=== PATIENT | female | born 1975 | race Caucasian/White ===

== ENCOUNTER 2017-08-19 13:57 | Observation (INO) | payer OTHER ==
--- NOTE | 2017-08-19 14:35 | EDM.PDOC ---
ED HPI GENERAL MEDICAL PROBLEM - General Chief Complaint: General Stated Complaint: [id number] TOOK TOO MANY BUPROPION Time Seen by Provider: 08/19/17 14:35 Source of Information: Reports: Patient, RN, RN Notes Reviewed, Other (Poison Control) History Limitations: Reports: No Limitations - History of Present Illness INITIAL COMMENTS - FREE TEXT/NARRATIVE: Arrives from home by POV with c/o accidentally taking #5 tablets of Buproprion XR 150mg having mistaken it for ibuprofen 200mg. Pt denies any attempt at self injury or suicide, including denial of suicidal thought, history of suicide attempt, or any current/recent major depressive episodes. Pt states that she has occasional low back pain and take Ibuprofen for pain relief and somehow grabbed the wrong pill bottle. She called Poison Control and was instructed to go immediately to the ER for evaluation and treatment. Poison Control consult from the ER advises screening labs, EKG, telemetry monitoring, seizure precautions, and observation for a minimum of 18 hours prior to discharge. Pt reports feeling jittery, slightly lightheaded, and nauseated. Onset: Today Onset Date: 08/19/17 Onset Time: 13:00 Duration: Constant Location: Reports: Generalized Severity: Moderate Improves with: Reports: None Worsens with: Reports: None Associated Symptoms: Reports: No Other Symptoms Left Lower Back Pain Score (Numeric/FACES): 5 - Related Data Allergies Allergy/AdvReac Type Severity Reaction Status Date / Time hydrocodone bitartrate Allergy Itching Verified 10/04/16 14:01 [From [place]] Sulfa (Sulfonamide Allergy Cannot Verified 10/04/16 14:01 Antibiotics) Remember Home Meds: Home Meds Albuterol [Ventolin HFA] 2 puff INH Q4H PRN 07/06/15 [History] valACYclovir HCl [valACYclovir] 1 tab PO DAILY 07/06/15 [History] Albuterol Sulfate 2.5 mg IH ASDIRECTED PRN 10/04/16 [History] Albuterol/Ipratropium [DuoNeb 3.0-0.5 MG/3 ML] 3 ml NEB Q6HRRT #10 neb 10/08/16 [Rx] Amoxicillin/Clavulanate K [Augmentin 875 MG/125 MG] 1 tab PO Q12HR #16 tablet [Rx] Azithromycin [Zithromax] 250 mg PO DAILY #8 tablet 10/08/16 [Rx] Oseltamivir Phosphate [IJD: Tamiflu] 75 mg PO BID #10 capsule 10/08/16 [Rx] guaiFENesin [Mucinex] 600 mg PO BID #1 tab.er 10/08/16 [Rx] predniSONE 20 mg PO DAILY #6 mg 10/08/16 [Rx] Past Medical History Cardiovascular History: Reports: None Respiratory History: Reports: Asthma Other Respiratory History: pneumonia, infleunza in past Gastrointestinal History: Reports: GERD Genitourinary History: Reports: None Other Genitourinary History: kidney stone 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 History: Reports: Endometriosis, Other (See Below) Other OB/BYN History: genital herpes Musculoskeletal History: Reports: Back Pain, Chronic, Other (See Below) Other Musculoskeletal History: lumbar disc disease Neurological History: Reports: None Psychiatric History: Reports: Anxiety, Depression Other Psychiatric History: patient denies, no medication for these Endocrine/Metabolic History: Reports: None Hematologic History: Reports: None Immunologic History: Reports: None Oncologic (Cancer) History: Reports: None Dermatologic History: Reports: Other (See Below) Other Dermatologic History: herpes virus - Infectious Disease History Infectious Disease History: Reports: Chicken Pox - Past Surgical History Female Surgical History: Reports: Cystectomy, Hysterectomy, Tubal Ligation Musculoskeletal Surgical History: Reports: Carpal Tunnel Social & Family History - Family History Family Medical History: Noncontributory Cardiac: Reports: Hypertension Other Cardiac Family History: Dad and mom Neurological: Reports: Alzheimers Disease, Other (See Below) Other Neurological Family History: in family hx - Tobacco Use Smoking Status *Q: Former Smoker Years of Tobacco use: 20 Packs/Tins Daily: 1 Used Tobacco, but Quit: Yes Month Tobacco Last Used: Oct Second Hand Smoke Exposure: No - Caffeine Use Caffeine Use: Reports: None - Recreational Drug Use Recreational Drug Use: No - Living Situation & Occupation Living situation: Reports: with Family ED ROS GENERAL - Review of Systems Review Of Systems: ROS reveals no pertinent complaints other than HPI. ED EXAM, GENERAL - Physical Exam Exam: See Below Exam Limited By: No Limitations General Appearance: Alert, WD/WN, No Apparent Distress, Anxious Eye Exam: Bilateral Eye: EOMI, Nystagmus (fine lateral gaze), PERRL Ears: Normal External Exam, Hearing Grossly Normal Nose: Normal Inspection Throat/Mouth: Normal Inspection, Normal Lips, Normal Teeth, Normal Gums, Normal Oropharynx, Normal Voice, No Airway Compromise Head: Atraumatic, Normocephalic Neck: Normal Inspection, Supple, Non-Tender, Full Range of Motion Respiratory/Chest: No Respiratory Distress, Lungs Clear, Normal Breath Sounds, No Accessory Muscle Use, Chest Non-Tender Cardiovascular: Normal Peripheral Pulses, Regular Rate, Rhythm, No Edema, No Gallop, No JVD, No Murmur, No Rub, Tachycardia GI/Abdominal: Normal Bowel Sounds, Soft, Non-Tender, No Distention, No Abnormal Bruit (Female) Exam: Deferred Rectal (Female) Exam: Deferred Back Exam: Decreased Range of Motion (lumbar due to pain), Paraspinal Tenderness. No: CVA Tenderness (L), CVA Tenderness (R), Vertebral Tenderness Extremities: Normal Inspection, Normal Range of Motion, Non-Tender, Normal Capillary Refill, No Pedal Edema Neurological: Alert, Oriented, CN II-XII Intact, Normal Cognition, Normal Gait, Normal Reflexes, No Motor/Sensory Deficits Psychiatric: Normal Affect, Normal Mood, Anxious, Other (not suicidal). No: Depressed Mood Skin Exam: Warm, Dry, Intact, Normal Color, No Rash EKG INTERPRETATION EKG Date: 08/19/17 Time: 14:15 Rhythm: Other (Sinus tach) Rate (Beats/Min): 101 [place]: Normal P-Wave: Present QRS: Normal ST-T: Normal QT: Normal Comparison: NA - No Prior EKG EKG Interpretation Comments: No acute ischemic changes. Course - Vital Signs Last Recorded V/S: Last Vital Signs Temp 37.0 C 08/19/17 14:00 Pulse 106 H 08/19/17 14:00 Resp 16 08/19/17 14:00 BP 116/65 08/19/17 14:00 Pulse Ox 100 08/19/17 14:00 - Orders/Labs/Meds Orders: Active Orders 24 hr Category Date Time Status EKG Documentation Completion [RC] URGENT Care 08/19/17 14:26 Active Peripheral IV Care [RC] . DIRECTED Care 08/19/17 14:36 Active Sodium Chloride 0.9% [Saline Flush] Med 08/19/17 14:36 Active 10 ml FLUSH ASDIRECTED PRN Peripheral IV Insertion Adult [OM.PC] Stat Oth 08/19/17 14:35 Ordered Seizure Precautions [OM.PC] Routine Oth 08/19/17 14:37 Ordered Medication Orders Sodium Chloride (Saline Flush) 10 ml FLUSH ASDIRECTED PRN PRN Reason: Keep Vein Open Last Admin: 08/19/17 14:45 Dose: 10 ml Labs: Laboratory Tests 08/19/17 08/19/17 08/19/17 Range/Units 14:40 14:40 14:40 WBC (5.0-10.0) 10^3/uL RBC (4.2-5.4) 10^6/uL Hgb (12.0-16.0) g/dL Hct (37.0-47.0) % MCV (80-100) fL MCH (27.0-34.0) pg MCHC (33.0-35.0) g/dL Plt Count (150-450) 10^3/uL Neut % (Auto) (42.2-75.2) % Lymph % (Auto) (20.5-50.1) % Vance % (Auto) (2-8) % Eos % (Auto) (1.0-3.0) % Baso % (Auto) (0.0-1.0) % Sodium (135-145) mmol/L Potassium (3.6-5.0) mmol/L Chloride (101-111) mmol/L Carbon Dioxide (21.0-31.0) mmol/L Anion Gap BUN (7-18) mg/dL Creatinine (0.6-1.3) mg/dL Est Cr Clr Drug Dosing mL/min Estimated GFR (MDRD) BUN/Creatinine Ratio Glucose (74-105) mg/dL Calcium (8.4-10.2) mg/dl Total Bilirubin (0.2-1.0) mg/dL AST (10-42) IU/L ALT (10-60) IU/L Alkaline Phosphatase (42-121) IU/L Total Protein (6.7-8.2) g/dl Albumin (3.2-5.5) g/dl Globulin Albumin/Globulin Ratio Urine Color Yellow (YELLOW) Urine Appearance Slightly cloudy (CLEAR) Urine pH 6.0 (5.0-9.0) Ur Specific [place] 1.020 (1.005-1.030) Urine Protein Negative (NEGATIVE) Urine Glucose (UA) Negative (NEGATIVE) Urine Ketones Negative (NEGATIVE) Urine Occult Blood Trace-intact H (NEGATIVE) Urine Nitrite Negative (NEGATIVE) Urine Bilirubin Negative (NEGATIVE) Urine Urobilinogen 0.2 (0.2-1.0) mg/dL Ur Leukocyte Esterase Negative (NEGATIVE) Urine RBC 0-5 /HPF Urine WBC 0-5 (0-5/HPF) /HPF Ur Epithelial Cells Many H /HPF Amorphous Sediment Rare (0/HPF) /HPF Urine Bacteria Few (0-FEW/HPF) /HPF Urine Mucus Rare /LPF Urine HCG, Qual Negative Salicylates Urine Opiates Screen Negative (NEGATIVE) Ur Oxycodone Screen Negative (NEGATIVE) Urine Methadone Screen Negative (NEGATIVE) Acetaminophen Ur Barbiturates Screen Negative (NEGATIVE) U Tricyclic Antidepress Positive H (NEGATIVE) Ur Phencyclidine Scrn Negative (NEGATIVE) Ur Amphetamine Screen Negative (NEGATIVE) U Methamphetamines Scrn Negative (NEGATIVE) Urine MDMA Screen Negative (NEGATIVE) U Benzodiazepines Scrn Negative (NEGATIVE) Urine Cocaine Screen Negative (NEGATIVE) U Marijuana (THC) Screen Positive H (NEGATIVE) Ethyl Alcohol mg/dL 08/19/17 08/19/17 Range/Units 14:47 14:47 WBC 8.6 (5.0-10.0) 10^3/uL RBC 4.20 (4.2-5.4) 10^6/uL Hgb 13.4 D (12.0-16.0) g/dL Hct 39.3 (37.0-47.0) % MCV 93.6 (80-100) fL MCH 31.9 (27.0-34.0) pg MCHC 34.1 (33.0-35.0) g/dL Plt Count 250 (150-450) 10^3/uL Neut % (Auto) 63.3 (42.2-75.2) % Lymph % (Auto) 27.6 (20.5-50.1) % Vance % (Auto) 6.6 (2-8) % Eos % (Auto) 2.2 (1.0-3.0) % Baso % (Auto) 0.3 (0.0-1.0) % Sodium 138 (135-145) mmol/L Potassium 3.2 L (3.6-5.0) mmol/L Chloride 103 (101-111) mmol/L Carbon Dioxide 26.0 (21.0-31.0) mmol/L Anion Gap 12.2 BUN 11 (7-18) mg/dL Creatinine 0.8 (0.6-1.3) mg/dL Est Cr Clr Drug Dosing 65.80 mL/min Estimated GFR (MDRD) > 60 BUN/Creatinine Ratio 13.75 Glucose 96 (74-105) mg/dL Calcium 8.9 (8.4-10.2) mg/dl Total Bilirubin 0.7 (0.2-1.0) mg/dL AST 19 (10-42) IU/L ALT 15 (10-60) IU/L Alkaline Phosphatase 58 (42-121) IU/L Total Protein 7.4 (6.7-8.2) g/dl Albumin 3.7 (3.2-5.5) g/dl Globulin 3.7 Albumin/Globulin Ratio 1.00 Urine Color (YELLOW) Urine Appearance (CLEAR) Urine pH (5.0-9.0) Ur Specific [place] (1.005-1.030) Urine Protein (NEGATIVE) Urine Glucose (UA) (NEGATIVE) Urine Ketones (NEGATIVE) Urine Occult Blood (NEGATIVE) Urine Nitrite (NEGATIVE) Urine Bilirubin (NEGATIVE) Urine Urobilinogen (0.2-1.0) mg/dL Ur Leukocyte Esterase (NEGATIVE) Urine RBC /HPF Urine WBC (0-5/HPF) /HPF Ur Epithelial Cells /HPF Amorphous Sediment (0/HPF) /HPF Urine Bacteria (0-FEW/HPF) /HPF Urine Mucus /LPF Urine HCG, Qual Salicylates < 4 Urine Opiates Screen (NEGATIVE) Ur Oxycodone Screen (NEGATIVE) Urine Methadone Screen (NEGATIVE) Acetaminophen < 10 Ur Barbiturates Screen (NEGATIVE) U Tricyclic Antidepress (NEGATIVE) Ur Phencyclidine Scrn (NEGATIVE) Ur Amphetamine Screen (NEGATIVE) U Methamphetamines Scrn (NEGATIVE) Urine MDMA Screen (NEGATIVE) U Benzodiazepines Scrn (NEGATIVE) Urine Cocaine Screen (NEGATIVE) U Marijuana (THC) Screen (NEGATIVE) Ethyl Alcohol < 5 mg/dL Meds: Medications Generic Name Dose Route Start Last Admin Trade Name Freq PRN Reason Stop Dose Admin Sodium Chloride 10 ml 08/19/17 14:36 08/19/17 14:45 Saline Flush FLUSH 10 ml ASDIRECTED PRN Administration Keep Vein Open Discontinued Medications Generic Name Dose Route Start Last Admin Trade Name Liliana PRN Reason Stop Dose Admin Sodium Chloride 1,000 mls @ 999 mls/hr 08/19/17 14:37 08/19/17 14:58 Normal Saline IV 08/19/17 15:37 999 mls/hr .BOLUS ONE Administration Ketorolac Tromethamine 30 mg 08/19/17 15:28 08/19/17 15:43 Toradol IVPUSH 08/19/17 15:29 30 mg ONETIME ONE Administration Ondansetron HCl 4 mg 08/19/17 15:28 08/19/17 15:43 Zofran IV 08/19/17 15:29 4 mg ONETIME ONE Administration Departure - Departure Time of Disposition: 15:44 (admitted to Dr. Hargrove) Disposition: Refer to Observation Condition: Undetermined Clinical Impression: Bupropion overdose Qualifiers: Encounter type: initial encounter Injury intent: accidental or unintentional Qualified Code(s): T43.291A - Poisoning by other antidepressants, accidental ( unintentional), initial encounter - Discharge Information - My Orders Last 24 Hours: My Active Orders 08/19/17 14:26 EKG Documentation Completion [RC] URGENT 08/19/17 14:35 Peripheral IV Insertion Adult [OM.PC] Stat 08/19/17 14:36 Peripheral IV Care [RC] . DIRECTED Sodium Chloride 0.9% [Saline Flush] 10 ml FLUSH ASDIRECTED PRN 08/19/17 14:37 Seizure Precautions [OM.PC] Routine - Assessment/Plan Last 24 Hours: My Active Orders 08/19/17 14:26 EKG Documentation Completion [RC] URGENT 08/19/17 14:35 Peripheral IV Insertion Adult [OM.PC] Stat 08/19/17 14:36 Peripheral IV Care [RC] . DIRECTED Sodium Chloride 0.9% [Saline Flush] 10 ml FLUSH ASDIRECTED PRN 08/19/17 14:37 Seizure Precautions [OM.PC] Routine
[2017-08-19] MEDS ORDERED: Sodium Chloride 0.9% 10 ML Syringe FLUSH PRN (14:36)
[2017-08-19] MEDS ORDERED: Sodium Chloride 0.9% 1,000 ML IV ONE (14:37)
[2017-08-19] MEDS ORDERED: Ondansetron 4 MG/2 ML SDV IV ONE (15:28)
[2017-08-19] MEDS ORDERED: Ketorolac 30 MG/ML SDV IVPUSH ONE (15:28)
[2017-08-19 15:29] LABS: CHLORIDE,CL 103 mmol/L (101-111); SODIUM,NA 138 mmol/L (135-145)
[2017-08-19 15:32] LABS: ACETAMINOPHEN < 10
[2017-08-19] MEDS ORDERED: Acetaminophen 325 MG Tab PO PRN (16:57)
[2017-08-19] MEDS ORDERED: Magnesium Hydroxide 400 MG/5 ML Susp 30 ML Cup PO PRN (16:57)
[2017-08-19] MEDS ORDERED: Ondansetron 4 MG Tab.DIS PO PRN ×2 (17:28→20:21)
[2017-08-19] MEDS ORDERED: Albuterol/Ipratropium 3.0-0.5 MG/3 ML Neb Soln NEB SCH (18:00)
[2017-08-19] MEDS ORDERED: ALBUTEROL MDI INH PRN (18:54)
[2017-08-19] MEDS ORDERED: Aluminum Hydroxide/Magnesium Hydroxide/Simethicone Susp 30 ML Cup PO PRN (20:21)
[2017-08-19] MEDS ORDERED: VALACYCLOVIR HCL 1000 MG PO SCH (21:00)
--- NOTE | 2017-08-19 22:12 | HP ---
REASON FOR ADMISSION: Accidental ingestion of bupropion tablets. HISTORY OF PRESENT ILLNESS: Hayley Daigle is a 42-year-old female who this afternoon took 5 tablets of bupropion XR 150 mg each (total dose 750 mg). She thought she was taking ibuprofen and shook 5 tablets out into her hand and then realized after the fact that she is taking the bupropion. It is unclear why she failed to see the difference in the tablets. She adamantly denies any attempted self-injury or suicide. She denies any plan or thoughts of suicide. No previous episodes of suicide or self-harm. No history of major depression. Poison Control was consulted, and their recommendation was for overnight admission on telemetry with cardiac monitoring and seizure precautions. PAST MEDICAL HISTORY: Genital herpes, lumbar disc disease, stress urinary incontinence, chronic left shoulder pain, bronchial asthma, dyspepsia, depression in the past, renal calculi in the past, anxiety disorder, endometriosis, and GERD. PAST SURGICAL HISTORY: She has had multiple abdominal procedures, tubal block, appendectomy, tonsils and adenoids, hysteroscopy and D and C with laparoscopy for lysis of adhesions. Cystoscopy. Bladder surgery in 2013 to remove lesion and hysterectomy. IMMUNIZATION HISTORY: Tdap on 03/06/2017. SOCIAL HISTORY: She is single. She is a former smoker, stopped smoking in 2013 after smoking 1 pack of cigarettes a day for 20 years. No secondhand exposure. FAMILY HISTORY: There is a family history of cardiac disease in both parents. REVIEW OF SYSTEMS: She denied any loss of consciousness. She did feel slightly lightheaded and jittery, felt nauseous. She has chronic lower back pain. No vision or hearing changes. No ongoing vomiting or diarrhea. No abdominal pain. No recent falls or injuries. No change in bowel or bladder habits. Appetite is stable. A 12-lead EKG shows sinus tachycardia with a ventricular rate of about 100. Normal axis and intervals. No acute changes. LABORATORY DATA: CBC showed a white count of 8.6, platelets of 250,000, hemoglobin and hematocrit of 13.4 and 39. Electrolytes showed potassium of 3.2, otherwise completely normal electrolytes and LFTs. BUN and creatinine were 11 and 0.8 with a GFR of more than 60. Urinalysis was negative. Urine test was negative (status post hysterectomy). Urine toxicology was positive for tricyclic antidepressants and for marijuana. Alcohol was not detected. Salicylates and Tylenol were not detected. TREATMENT IN THE EMERGENCY ROOM: She was placed on telemetry. She was given a bolus of normal saline. Toradol was used for pain. She felt somewhat nauseous, and she was given an IV dose of Zofran. PHYSICAL EXAMINATION: General: She is a pleasant woman sitting in bed in no acute distress. She is alert and oriented. Vital Signs: Blood pressure is 111/75 on the left and 105/63 on the right, pulse 86 and regular, respiratory rate 20, oxygen saturation 99% on room air. She is afebrile. Height 5 feet, weight 175 pounds 6 ounces. HEENT: Unremarkable. ENT was clear. Moist mucous membranes. No JVDs or bruits. No adenopathy. No thyromegaly. Chest: Clear bilateral breath sounds. Heart: Regular rate and rhythm. Abdomen: Soft and benign. Extremities: No edema. Neurologic: There were no gross motor or sensory deficits. IMPRESSION: A 42-year-old female who took an accidental ingestion of 750 mg of bupropion XR. PLAN: She will be admitted overnight and will be observed on telemetry. If she feels well in the morning and there have been no issues with cardiac arrhythmias or seizure disorder, she will be discharged to home. Condition at time of admission stable. CODE STATUS: Full code. [facility] /[id number]
[2017-08-20 07:40] VITALS: BP 96/53
--- NOTE | 2017-08-24 14:47 | EKG ---
08/19/2017 - MIKEL QUINTERO - FINDINGS: This 12-lead EKG shows a sinus tachycardia with a ventricular rate of 101. Normal axis and intervals. No acute ST-segment or T-wave changes. [facility] /[id number]
== END 2017-08-20 11:30 | disposition home or self-care (01) ==
LOC: DL.ED 13:57 → DL.MS 15:15 → UNDOADMOB 15:15 → DL.MS 16:58
PROVIDERS: ADMIT Internal Medicine; ATTEND Internal Medicine
DX: T43.291A Poisoning by other antidepressants, accidental (unintentional), initial encounter (principal); F41.9 Anxiety disorder, unspecified; K21.9 Gastro-esophageal reflux disease without esophagitis; G89.29 Other chronic pain; M25.512 Pain in left shoulder; A60.00 Herpesviral infection of urogenital system, unspecified; J45.909 Unspecified asthma, uncomplicated; Z79.52 Long term (current) use of systemic steroids; Z79.899 Other long term (current) drug therapy; Z88.2 Allergy status to sulfonamides; Z88.5 Allergy status to narcotic agent; Z90.49 Acquired absence of other specified parts of digestive tract; Z90.710 Acquired absence of both cervix and uterus; Z90.89 Acquired absence of other organs; Z98.51 Tubal ligation status; Z98.890 Other specified postprocedural states; Z87.891 Personal history of nicotine dependence; Z87.01 Personal history of pneumonia (recurrent); Y92.9 Unspecified place or not applicable; Z82.0 Family history of epilepsy and other diseases of the nervous system
CPT/HCPCS: 36415; 80053; 80305; 81001; 81025; 85025; 93005; 96361; 96374; 96375; 99285; A9270; G0378; G0480; J1885; J2405; J7030; J7050

== ENCOUNTER 2018-09-19 10:28 | Emergency (ER) | payer BC ==
[2018-09-19 11:31] VITALS: BP 131/86
== END 2018-09-19 12:02 | disposition left against medical advice (07) ==
LOC: DL.ED 10:28
DX: Z53.21 Procedure and treatment not carried out due to patient leaving prior to being seen by health care provider (principal)

== ENCOUNTER 2019-02-04 19:39 | Emergency (ER) | payer SELFPAY ==
[2019-02-04 19:57] VITALS: BP 133/85
[2019-02-04] MEDS ORDERED: Ondansetron 4 MG/2 ML SDV IV ONE (20:00)
[2019-02-04] MEDS ORDERED: Sodium Chloride 0.9% 1,000 ML IV ONE (20:00)
[2019-02-04] MEDS ORDERED: fentaNYL 100 MCG/2 ML SDV IVPUSH ONE (20:00)
--- NOTE | 2019-02-04 20:03 | EDM.PDOC ---
ED HPI GENERAL MEDICAL PROBLEM - General Chief Complaint: Genitourinary Problem Stated Complaint: KIDNEY STONES OR INFECTION? Time Seen by Provider: 02/04/19 20:01 Source of Information: Reports: Patient History Limitations: Reports: No Limitations - History of Present Illness INITIAL COMMENTS - FREE TEXT/NARRATIVE: onset last night on right side but this am on left side. urine bloody. Lower Back Pain Score (Numeric/FACES): 9 - Related Data Allergies Allergy/AdvReac Type Severity Reaction Status Date / Time hydrocodone bitartrate Allergy Intermediate Hives Verified 02/04/19 19:52 [From [place]] Sulfa (Sulfonamide Allergy Mild Nausea and Verified 02/04/19 19:52 Antibiotics) Vomiting Home Meds: Home Meds Albuterol [Ventolin HFA] 2 puff INH Q4H PRN 07/06/15 [History] valACYclovir HCl [valACYclovir] 1,000 mg PO BEDTIME 07/06/15 [History] Albuterol/Ipratropium [DuoNeb 3.0-0.5 MG/3 ML] 3 ml NEB Q6HRRT PRN 09/19/18 [ History] Montelukast Sodium [Singulair] 10 mg PO BEDTIME 09/19/18 [History] Past Medical History HEENT History: Reports: Impaired Vision Cardiovascular History: Reports: None Respiratory History: Reports: Asthma Other Respiratory History: pneumonia, infleunza in past Gastrointestinal History: Reports: GERD Genitourinary History: Reports: None Other Genitourinary History: kidney stone 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: Reports: Endometriosis, , Other (See Below) 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: genital herpes Musculoskeletal History: Reports: Back Pain, Chronic, Other (See Below) Other Musculoskeletal History: lumbar disc disease Neurological History: Reports: None Psychiatric History: Reports: Anxiety, Depression Other Psychiatric History: patient denies, no medication for these Endocrine/Metabolic History: Reports: None Hematologic History: Reports: None Immunologic History: Reports: None Oncologic (Cancer) History: Reports: None Dermatologic History: Reports: Other (See Below) Other Dermatologic History: herpes virus - Infectious Disease History Infectious Disease History: Reports: Chicken Pox - Past Surgical History Female Surgical History: Reports: Cystectomy, Hysterectomy, Oophorectomy, Tubal Ligation Social & Family History - Family History Family Medical History: Noncontributory Cardiac: Reports: Hypertension Other Cardiac Family History: Dad and mom Neurological: Reports: Alzheimers Disease, Other (See Below) Other Neurological Family History: in family hx - Caffeine Use Caffeine Use: Reports: None - Living Situation & Occupation Living situation: Reports: with Family ED ROS GENERAL - Review of Systems Review Of Systems: ROS reveals no pertinent complaints other than HPI. ED EXAM, RENAL/ - Physical Exam Exam: See Below Exam Limited By: No Limitations General Appearance: Alert, WD/WN, Mild Distress, Moderate Distress, Other (pain) . No: Active Emesis Ears: Hearing Grossly Normal Throat/Mouth: Normal Voice, No Airway Compromise Head: Atraumatic Neck: Non-Tender, Full Range of Motion Respiratory/Chest: No Respiratory Distress Cardiovascular: Regular Rate, Rhythm GI/Abdominal: Soft, Non-Tender Back Exam: CVA Tenderness (L), CVA Tenderness (R) Neurological: Alert, Oriented, Normal Cognition, Normal Gait, No Motor/Sensory Deficits Psychiatric: Tearful Skin Exam: Warm, Dry, Normal Color Lymphatic: No Adenopathy Course - Vital Signs Last Recorded V/S: Last Vital Signs Temp 36.7 C 02/04/19 19:53 Pulse Resp 20 02/04/19 19:53 BP 133/85 02/04/19 19:53 Pulse Ox 100 02/04/19 19:53 - Orders/Labs/Meds Orders: Active Orders 24 hr Category Date Time Status CULTURE BLOOD [BC] Stat Lab 02/04/19 20:10 Received CULTURE URINE [RM] Stat Lab 02/04/19 19:50 Received cefTRIAXone [Rocephin] 1,000 mg Med 02/04/19 23:19 Ordered Sodium Chloride 0.9% [Normal Saline] 100 ml IV ONETIME Medication Orders Ceftriaxone Sodium 1,000 mg/ (Sodium Chloride) 100 mls @ 200 mls/hr IV ONETIME ONE Stop: 02/04/19 23:48 Labs: Laboratory Tests 02/04/19 02/04/19 02/04/19 Range/Units 19:50 19:50 20:04 WBC 15.9 H (5.0-10.0) 10^3/uL RBC 4.32 (4.2-5.4) 10^6/uL Hgb 14.4 (12.0-16.0) g/dL Hct 42.4 (37.0-47.0) % MCV 98.1 D (80-100) fL MCH 33.3 (27.0-34.0) pg MCHC 34.0 (33.0-35.0) g/dL Plt Count 269 (150-450) 10^3/uL Neut % (Auto) 87.5 H (42.2-75.2) % Lymph % (Auto) 10.8 L (20.5-50.1) % [place] % (Auto) 0.5 L (2-8) % Eos % (Auto) 1.1 (1.0-3.0) % Baso % (Auto) 0.1 (0.0-1.0) % Sodium (135-145) mmol/L Potassium (3.6-5.0) mmol/L Chloride (101-111) mmol/L Carbon Dioxide (21.0-31.0) mmol/L Anion Gap BUN (7-18) mg/dL Creatinine (0.6-1.3) mg/dL Est Cr Clr Drug Dosing mL/min Estimated GFR (MDRD) BUN/Creatinine Ratio Glucose (74-105) mg/dL Lactic Acid (0.5-2.2) mmol/L Calcium (8.4-10.2) mg/dl Total Bilirubin (0.2-1.0) mg/dL AST (10-42) IU/L ALT (10-60) IU/L Alkaline Phosphatase (42-121) IU/L Total Protein (6.7-8.2) g/dl Albumin (3.2-5.5) g/dl Globulin Albumin/Globulin Ratio Urine Color Yellow (YELLOW) Urine Appearance Slightly cloudy (CLEAR) Urine pH 6.0 (5.0-9.0) Ur Specific [place] 1.015 (1.005-1.030) Urine Protein 30 H (NEGATIVE) Urine Glucose (UA) Negative (NEGATIVE) Urine Ketones Negative (NEGATIVE) Urine Occult Blood Large H (NEGATIVE) Urine Nitrite Negative (NEGATIVE) Urine Bilirubin Negative (NEGATIVE) Urine Urobilinogen 0.2 (0.2-1.0) mg/dL Ur Leukocyte Esterase Moderate H (NEGATIVE) Urine RBC >100 H /HPF Urine WBC >100 H (0-5/HPF) /HPF Ur Epithelial Cells Few (NOT SEEN) /HPF Urine Bacteria Moderate H (0-FEW/HPF) /HPF Urine Mucus Few H (NOT SEEN) /LPF Urine HCG, Qual Negative 02/04/19 02/04/19 Range/Units 20:10 20:10 WBC (5.0-10.0) 10^3/uL RBC (4.2-5.4) 10^6/uL Hgb (12.0-16.0) g/dL Hct (37.0-47.0) % MCV (80-100) fL MCH (27.0-34.0) pg MCHC (33.0-35.0) g/dL Plt Count (150-450) 10^3/uL Neut % (Auto) (42.2-75.2) % Lymph % (Auto) (20.5-50.1) % [place] % (Auto) (2-8) % Eos % (Auto) (1.0-3.0) % Baso % (Auto) (0.0-1.0) % Sodium 139 (135-145) mmol/L Potassium 3.5 L (3.6-5.0) mmol/L Chloride 104 (101-111) mmol/L Carbon Dioxide 25.0 (21.0-31.0) mmol/L Anion Gap 13.5 BUN 14 (7-18) mg/dL Creatinine 0.8 (0.6-1.3) mg/dL Est Cr Clr Drug Dosing 112.98 mL/min Estimated GFR (MDRD) > 60 BUN/Creatinine Ratio 17.50 Glucose 104 (74-105) mg/dL Lactic Acid 1.4 (0.5-2.2) mmol/L Calcium 8.8 (8.4-10.2) mg/dl Total Bilirubin 0.7 (0.2-1.0) mg/dL AST 18 (10-42) IU/L ALT 13 (10-60) IU/L Alkaline Phosphatase 62 (42-121) IU/L Total Protein 7.8 (6.7-8.2) g/dl Albumin 4.1 (3.2-5.5) g/dl Globulin 3.7 Albumin/Globulin Ratio 1.11 Urine Color (YELLOW) Urine Appearance (CLEAR) Urine pH (5.0-9.0) Ur Specific [place] (1.005-1.030) Urine Protein (NEGATIVE) Urine Glucose (UA) (NEGATIVE) Urine Ketones (NEGATIVE) Urine Occult Blood (NEGATIVE) Urine Nitrite (NEGATIVE) Urine Bilirubin (NEGATIVE) Urine Urobilinogen (0.2-1.0) mg/dL Ur Leukocyte Esterase (NEGATIVE) Urine RBC /HPF Urine WBC (0-5/HPF) /HPF Ur Epithelial Cells (NOT SEEN) /HPF Urine Bacteria (0-FEW/HPF) /HPF Urine Mucus (NOT SEEN) /LPF Urine HCG, Qual Meds: Medications Generic Name Dose Route Start Last Admin Trade Name Freq PRN Reason Stop Dose Admin Ceftriaxone Sodium 1,000 mg/ 100 mls @ 200 mls/hr 02/04/19 23:19 Sodium Chloride IV 02/04/19 23:48 ONETIME ONE Discontinued Medications Generic Name Dose Route Start Last Admin Trade Name Freq PRN Reason Stop Dose Admin Fentanyl 100 mcg 02/04/19 20:00 02/04/19 20:11 Sublimaze IVPUSH 02/04/19 20:01 100 mcg ONETIME ONE Administration Hydromorphone HCl 0.5 mg 02/04/19 20:55 02/04/19 21:01 Dilaudid IVPUSH 02/04/19 20:56 0.5 mg ONETIME ONE Administration Hydromorphone HCl 1 mg 02/04/19 22:34 02/04/19 22:40 Dilaudid IVPUSH 02/04/19 22:35 1 mg ONETIME ONE Administration Sodium Chloride 1,000 mls @ 999 mls/hr 02/04/19 20:00 02/04/19 20:10 Normal Saline IV 02/04/19 21:00 999 mls/hr .BOLUS ONE Administration Ketorolac Tromethamine 30 mg 02/04/19 20:45 02/04/19 20:50 Toradol IVPUSH 02/04/19 20:46 30 mg ONETIME ONE Administration Ondansetron HCl 4 mg 02/04/19 20:00 02/04/19 20:11 Zofran IV 02/04/19 20:01 4 mg ONETIME ONE Administration Tamsulosin HCl 0.4 mg 02/04/19 23:19 Flomax PO 02/04/19 23:20 ONETIME ONE - Re-Assessments/Exams Free Text/Narrative Re-Assessment/Exam: 02/04/19 23:[address] Alaniz who kindly accepted pt. Departure - Departure Time of Disposition: 23:28 Disposition: DC/Tfer to [facility] 02 Condition: Fair Clinical Impression: Kidney stone - Discharge Information Forms: Interfacility Transfer [facility] - My Orders Last 24 Hours: My Active Orders 02/04/19 19:50 CULTURE URINE [RM] Stat 02/04/19 20:10 CULTURE BLOOD [BC] Stat 02/04/19 23:19 cefTRIAXone [Rocephin] 1,000 mg Sodium Chloride 0.9% [Normal Saline] 100 ml IV ONETIME - Assessment/Plan Last 24 Hours: My Active Orders 02/04/19 19:50 CULTURE URINE [RM] Stat 02/04/19 20:10 CULTURE BLOOD [BC] Stat 02/04/19 23:19 cefTRIAXone [Rocephin] 1,000 mg Sodium Chloride 0.9% [Normal Saline] 100 ml IV ONETIME
[2019-02-04 20:38] LABS: ANION GAP 13.5; CHLORIDE,CL 104 mmol/L (101-111); SODIUM,NA 139 mmol/L (135-145)
[2019-02-04] MEDS ORDERED: Ketorolac 30 MG/ML SDV IVPUSH ONE (20:45)
[2019-02-04] MEDS ORDERED: HYDROmorphone 1 MG/ML Syringe IVPUSH ONE ×3 (20:55→23:29)
[2019-02-04] MEDS ORDERED: Tamsulosin 0.4 MG Cap.ER PO ONE (23:19)
[2019-02-04] MEDS ORDERED: cefTRIAXone 500 MG Vial ONE (23:55)
== END 2019-02-05 00:30 ==
LOC: DL.ED 19:39
DX: N13.2 Hydronephrosis with renal and ureteral calculous obstruction (principal); Z88.2 Allergy status to sulfonamides; Z88.8 Allergy status to other drugs, medicaments and biological substances; J45.909 Unspecified asthma, uncomplicated; Z79.899 Other long term (current) drug therapy; Z98.51 Tubal ligation status; Z90.710 Acquired absence of both cervix and uterus
CPT/HCPCS: 36415; 74176; 80053; 81001; 81025; 83605; 85025; 87040; 87086; 87088; 87186; 96365; 96367; 96375; 96376; 99284; A9270; J0696; J1170; J1885; J2405; J3010; J7030; J7050

== ENCOUNTER 2019-08-31 07:53 | Emergency (ER) | payer BC, OTHER ==
[2019-08-31 08:09] VITALS: BP 116/70; PULSE 101
[2019-08-31 08:47] LABS: ANION GAP 13.4; CHLORIDE,CL 105 mmol/L (101-111); SODIUM,NA 137 mmol/L (135-145)
--- NOTE | 2019-08-31 08:54 | EDM.PDOC ---
ED HPI GENERAL MEDICAL PROBLEM - General Chief Complaint: Respiratory Problem Stated Complaint: SOB Time Seen by Provider: 08/31/19 08:35 Source of Information: Reports: Patient History Limitations: Reports: No Limitations - History of Present Illness INITIAL COMMENTS - FREE TEXT/NARRATIVE: This 44 yo female patient reports to the ED with increased shortness of breath. The patient reports her symptoms started 2 days ago and has been getting worse. The patient reports she has been taking her medications as prescribed, but continues to have symptoms. The patient reports a history of Asthma with similar episodes in the past. 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 Treatments throat/chest wall Pain Score (Numeric/FACES): 4 - Related Data Allergies Allergy/AdvReac Type Severity Reaction Status Date / Time hydrocodone bitartrate Allergy Intermediate Hives Verified 08/31/19 08:12 [From [facility]] Sulfa (Sulfonamide Allergy Mild Nausea and Verified 08/31/19 08:12 Antibiotics) Vomiting Home Meds: Home Meds Albuterol [Ventolin HFA] 2 puff INH Q4H PRN 07/06/15 [History] valACYclovir HCl [valACYclovir] 1,000 mg PO BEDTIME 07/06/15 [History] Albuterol/Ipratropium [DuoNeb 3.0-0.5 MG/3 ML] 3 ml NEB Q6HRRT PRN 09/19/18 [ History] Montelukast Sodium [Singulair] 10 mg PO BEDTIME 09/19/18 [History] Past Medical History HEENT History: Reports: Impaired Vision Cardiovascular History: Reports: None Respiratory History: Reports: Asthma Other Respiratory History: pneumonia, infleunza in past Gastrointestinal History: Reports: GERD Genitourinary History: Reports: None Other Genitourinary History: kidney stone 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 History: Reports: Endometriosis, , Other (See Below) Other 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 History: genital herpes Musculoskeletal History: Reports: Back Pain, Chronic, Other (See Below) Other Musculoskeletal History: lumbar disc disease Neurological History: Reports: None Psychiatric History: Reports: Anxiety, Depression Other Psychiatric History: patient denies, no medication for these Endocrine/Metabolic History: Reports: None Hematologic History: Reports: None Immunologic History: Reports: None Oncologic (Cancer) History: Reports: None Dermatologic History: Reports: Other (See Below) Other Dermatologic History: herpes virus - Infectious Disease History Infectious Disease History: Reports: Chicken Pox - Past Surgical History Head Surgeries/Procedures: Reports: None Female Surgical History: Reports: Cystectomy, Hysterectomy, Oophorectomy, Tubal Ligation Social & Family History - Family History Family Medical History: Noncontributory Cardiac: Reports: Hypertension Other Cardiac Family History: Dad and mom Neurological: Reports: Alzheimers Disease, Other (See Below) Other Neurological Family History: in family hx - Tobacco Use Smoking Status *Q: Former Smoker Years of Tobacco use: 20 Packs/Tins Daily: 1 Used Tobacco, but Quit: Yes Month/Year Tobacco Last Used: jul, 2015 Second Hand Smoke Exposure: No - Caffeine Use Caffeine Use: Reports: None - Recreational Drug Use Recreational Drug Use: No - Living Situation & Occupation Living situation: Reports: with Family ED ROS GENERAL - Review of Systems Review Of Systems: Comprehensive ROS is negative, except as noted in HPI. ED EXAM, GENERAL - Physical Exam Exam: See Below Exam Limited By: No Limitations General Appearance: Alert, WD/WN, Moderate Distress Eye Exam: Bilateral Eye: EOMI, Normal Inspection, PERRL Ears: Normal External Exam, Normal Canal, Hearing Grossly Normal, Normal TMs Nose: Normal Inspection, Normal Mucosa, No Blood Throat/Mouth: Normal Inspection, Normal Lips, Normal Teeth, Normal Gums, Normal Oropharynx, Normal Voice, No Airway Compromise Head: Atraumatic, Normocephalic Neck: Normal Inspection, Supple, Non-Tender, Full Range of Motion Respiratory/Chest: No Respiratory Distress, No Accessory Muscle Use, Chest Non- Tender, Wheezing Cardiovascular: Normal Peripheral Pulses, Regular Rate, Rhythm, No Edema, No Gallop, No JVD, No Murmur, No Rub GI/Abdominal: Normal Bowel Sounds, Soft, Non-Tender, No Organomegaly, No Distention, No Abnormal Bruit, No Mass Rectal (Female) Exam: Deferred Back Exam: Normal Inspection, Full Range of Motion, NT Extremities: Normal Inspection, Normal Range of Motion, Non-Tender, Normal Capillary Refill, No Pedal Edema Neurological: Alert, Oriented, CN II-XII Intact, Normal Cognition, Normal Gait, Normal Reflexes, No Motor/Sensory Deficits Psychiatric: Normal Affect, Normal Mood Skin Exam: Warm, Dry, Intact, Normal Color, No Rash Lymphatic: No Adenopathy Course - Vital Signs Last Recorded V/S: Last Vital Signs Temp 36.8 C 08/31/19 08:08 Pulse 101 H 08/31/19 08:08 Resp 20 08/31/19 08:08 BP 116/70 08/31/19 08:08 Pulse Ox 97 08/31/19 08:08 - Orders/Labs/Meds Orders: Active Orders 24 hr Category Date Time Status CULTURE BLOOD [BC] Stat Lab 08/31/19 08:10 Ordered Labs: Laboratory Tests 08/31/19 08/31/19 08/31/19 Range/Units 08:18 08:18 08:18 WBC 10.2 H (5.0-10.0) 10^3/uL RBC 4.38 (4.2-5.4) 10^6/uL Hgb 14.4 (12.0-16.0) g/dL Hct 42.0 (37.0-47.0) % MCV 95.9 (80-100) fL MCH 32.9 (27.0-34.0) pg MCHC 34.3 (33.0-35.0) g/dL Plt Count 261 (150-450) 10^3/uL Neut % (Auto) 72.8 (42.2-75.2) % Lymph % (Auto) 18.5 L (20.5-50.1) % [place] % (Auto) 6.5 (2-8) % Eos % (Auto) 1.8 (1.0-3.0) % Baso % (Auto) 0.4 (0.0-1.0) % Sodium 137 (135-145) mmol/L Potassium 4.4 (3.6-5.0) mmol/L Chloride 105 (101-111) mmol/L Carbon Dioxide 23.0 (21.0-31.0) mmol/L Anion Gap 13.4 BUN 18 (7-18) mg/dL Creatinine 0.8 (0.6-1.3) mg/dL Est Cr Clr Drug Dosing 64.46 mL/min Estimated GFR (MDRD) > 60 BUN/Creatinine Ratio 22.50 Glucose 100 (74-105) mg/dL Lactic Acid 1.4 (0.5-2.0) mmol/L Calcium 9.3 (8.4-10.2) mg/dl Total Bilirubin 0.5 (0.2-1.0) mg/dL AST 18 (10-42) IU/L ALT 14 (10-60) IU/L Alkaline Phosphatase 57 (42-121) IU/L Total Protein 7.8 (6.7-8.2) g/dl Albumin 4.0 (3.2-5.5) g/dl Globulin 3.8 Albumin/Globulin Ratio 1.05 Meds: Medications Discontinued Medications Generic Name Dose Route Start Last Admin Trade Name Freq PRN Reason Stop Dose Admin Methylprednisolone Sodium Succinate 125 mg 08/31/19 09:00 08/31/19 09:12 Solu-Medrol IM 08/31/19 09:01 125 mg ONETIME ONE Administration Departure - Departure Time of Disposition: 09:14 Disposition: Home, Self-Care 01 Condition: Fair Clinical Impression: Exacerbation of asthma Qualifiers: Asthma severity: moderate Asthma persistence: persistent Qualified Code(s): J45.41 - Moderate persistent asthma with (acute) exacerbation - Discharge Information *PRESCRIPTION DRUG MONITORING PROGRAM REVIEWED*: Not Applicable *COPY OF PRESCRIPTION DRUG MONITORING REPORT IN PATIENT JOYCE: Not Applicable Forms: ED Department Discharge Care Plan Goals: The patient was advised of the examination and lab results during the visit. The patient was given an injection of SoluMedrol while in the ED. The patient was discharged with a script for Azithromycin (250 mg) #6 to take 2 by mouth on day 1 and 1 by mouth on days 2-5. The patient was advised to continue to take her medications as prescribed. If the patient has any additional symptoms or concerns, the patient should visit her primary care facility or return to the emergency department. Sepsis Event Note - Evaluation Sepsis Screening Result: No Definite Risk - Focused Exam Vital Signs: Vital Signs Temp Pulse Resp BP Pulse Ox 08/31/19 08:08 36.8 C 101 H 20 116/70 97 Date Exam was Performed: 08/31/19 Time Exam was Performed: 09:14 - My Orders Last 24 Hours: My Active Orders 08/31/19 08:10 CULTURE BLOOD [BC] Stat - Assessment/Plan Last 24 Hours: My Active Orders 08/31/19 08:10 CULTURE BLOOD [BC] Stat
[2019-08-31] MEDS ORDERED: methylPREDNISolone Sodium Succinate 125 MG/2 ML SDV IM ONE (09:00)
== END 2019-08-31 09:25 | disposition home or self-care (01) ==
LOC: DL.ED 07:53
DX: J45.41 Moderate persistent asthma with (acute) exacerbation (principal); Z88.2 Allergy status to sulfonamides; Z90.710 Acquired absence of both cervix and uterus; Z98.51 Tubal ligation status; Z88.5 Allergy status to narcotic agent; Z87.891 Personal history of nicotine dependence
CPT/HCPCS: 36415; 71046; 80053; 83605; 85025; 87040; 87804; 96372; 99285; J2930

== ENCOUNTER 2020-07-23 18:05 | Emergency (ER) | payer BC, OTHER ==
[2020-07-23 18:21] VITALS: PULSE 117
--- NOTE | 2020-07-23 19:28 | EDM.PDOC ---
ED HPI GENERAL MEDICAL PROBLEM - General Chief Complaint: General Stated Complaint: 97.4* TEMP, ALL COVID SYMPTOMS Time Seen by Provider: 07/23/20 19:20 Source of Information: Reports: Patient History Limitations: Reports: No Limitations - History of Present Illness INITIAL COMMENTS - FREE TEXT/NARRATIVE: This 45 yo female patient reports to the ED with a 4-5 day history of increased shortness of breath, fatigue and headaches. The patient does have a history of asthma, but after using her inhaler the patient reports a "couple of seconds" of relief. The patient reports she has family members that have bronchitis and a sinus infection. 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 - Related Data Allergies Allergy/AdvReac Type Severity Reaction Status Date / Time hydrocodone bitartrate Allergy Intermediate Hives Verified 08/31/19 08:12 [From [employer]] Sulfa (Sulfonamide Allergy Mild Nausea and Verified 08/31/19 08:12 Antibiotics) Vomiting Home Meds: Home Meds Albuterol [Ventolin HFA] 2 puff INH Q4H PRN 07/06/15 [History] valACYclovir HCl [valACYclovir] 1,000 mg PO BEDTIME 07/06/15 [History] Albuterol/Ipratropium [DuoNeb 3.0-0.5 MG/3 ML] 3 ml NEB Q6HRRT PRN 09/19/18 [History] Montelukast Sodium [Singulair] 10 mg PO BEDTIME 09/19/18 [History] Past Medical History HEENT History: Reports: Impaired Vision Cardiovascular History: Reports: None Respiratory History: Reports: Asthma Other Respiratory History: pneumonia, infleunza in past Gastrointestinal History: Reports: GERD Genitourinary History: Reports: None Other Genitourinary History: kidney stone GAME DEVELOPER History: Reports: Endometriosis, , Other (See Below) Other GAME DEVELOPER History: genital herpes Musculoskeletal History: Reports: Back Pain, Chronic, Other (See Below) Other Musculoskeletal History: lumbar disc disease Neurological History: Reports: None Psychiatric History: Reports: Anxiety, Depression Other Psychiatric History: patient denies, no medication for these Endocrine/Metabolic History: Reports: None Hematologic History: Reports: None Immunologic History: Reports: None Oncologic (Cancer) History: Reports: None Dermatologic History: Reports: Other (See Below) Other Dermatologic History: herpes virus - Infectious Disease History Infectious Disease History: Reports: Chicken Pox - Past Surgical History Head Surgeries/Procedures: Reports: None Female Surgical History: Reports: Cystectomy, Hysterectomy, Oophorectomy, Tubal Ligation Social & Family History - Family History Family Medical History: No Pertinent Family History Cardiac: Reports: Hypertension Other Cardiac Family History: Dad and mom Neurological: Reports: Alzheimers Disease, Other (See Below) Other Neurological Family History: in family hx - Caffeine Use Caffeine Use: Reports: None - Living Situation & Occupation Living situation: Reports: with Family ED ROS GENERAL - Review of Systems Review Of Systems: Comprehensive ROS is negative, except as noted in HPI. ED EXAM, GENERAL - Physical Exam Exam: See Below Exam Limited By: No Limitations General Appearance: Alert, WD/WN, Moderate Distress Eye Exam: Bilateral Eye: EOMI, Normal Inspection, PERRL Ears: Normal External Exam, Normal Canal, Hearing Grossly Normal, Normal TMs Nose: Normal Inspection, Normal Mucosa, No Blood Throat/Mouth: Normal Inspection, Normal Lips, Normal Teeth, Normal Gums, Normal Oropharynx, Normal Voice, No Airway Compromise Head: Atraumatic, Normocephalic Neck: Normal Inspection, Supple, Non-Tender, Full Range of Motion Respiratory/Chest: No Respiratory Distress, Lungs Clear, Normal Breath Sounds, No Accessory Muscle Use, Chest Non-Tender Cardiovascular: Normal Peripheral Pulses, Regular Rate, Rhythm, No Edema, No Gallop, No JVD, No Murmur, No Rub GI/Abdominal: Normal Bowel Sounds, Soft, Non-Tender, No Organomegaly, No Distention, No Abnormal Bruit, No Mass (Female) Exam: Deferred Rectal (Female) Exam: Deferred Back Exam: Normal Inspection, Full Range of Motion, NT Extremities: Normal Inspection, Normal Range of Motion, Non-Tender, Normal Capillary Refill, No Pedal Edema Neurological: Alert, Oriented, CN II-XII Intact, Normal Cognition, Normal Gait, Normal Reflexes, No Motor/Sensory Deficits Psychiatric: Normal Affect, Normal Mood Skin Exam: Warm, Dry, Intact, Normal Color, No Rash Lymphatic: No Adenopathy Course - Vital Signs Last Recorded V/S: Last Vital Signs Temp 36.9 C 07/23/20 18:20 Pulse 117 H 07/23/20 18:20 Resp 18 07/23/20 18:20 BP Pulse Ox 100 07/23/20 18:20 - Orders/Labs/Meds Orders: Active Orders 24 hr Category Date Time Status Isolation [COMM] Routine Oth 07/23/20 18:10 Active Labs: Laboratory Tests 07/23/20 07/23/20 07/23/20 Range/Units 18:12 19:36 19:36 WBC 8.5 (5.0-10.0) 10^3/uL RBC 3.97 L (4.2-5.4) 10^6/uL Hgb 13.5 (12.0-16.0) g/dL Hct 38.9 (37.0-47.0) % MCV 98.0 (80-100) fL MCH 34.0 (27.0-34.0) pg MCHC 34.7 (33.0-35.0) g/dL Plt Count 257 (150-450) 10^3/uL Neut % (Auto) 57.2 (42.2-75.2) % Lymph % (Auto) 32.7 (20.5-50.1) % [place] % (Auto) 6.9 (2-8) % Eos % (Auto) 2.7 (1.0-3.0) % Baso % (Auto) 0.5 (0.0-1.0) % D-Dimer, Quantitative 108 (0-400) ng/mL Sodium (136-145) mmol/L Potassium (3.5-5.1) mmol/L Chloride (98-107) mmol/L Carbon Dioxide (21-32) mmol/L Anion Gap (7-13) mEq/L BUN (7-18) mg/dL Creatinine (0.55-1.02) mg/dL Est Cr Clr Drug Dosing mL/min Estimated GFR (MDRD) BUN/Creatinine Ratio (No establ ref range) Glucose (74-99) mg/dL Lactic Acid (0.4-2.0) mmol/L Calcium (8.5-10.1) mg/dL Total Bilirubin (0.2-1.0) mg/dL AST (15-37) U/L ALT (14-59) U/L Alkaline Phosphatase (46-116) U/L Total Protein (6.4-8.2) g/dL Albumin (3.4-5.0) g/dL Globulin Albumin/Globulin Ratio SARS-CoV-2 RNA (MISSY) Negative (NEGATIVE) 07/23/20 07/23/20 Range/Units 19:36 19:36 WBC (5.0-10.0) 10^3/uL RBC (4.2-5.4) 10^6/uL Hgb (12.0-16.0) g/dL Hct (37.0-47.0) % MCV (80-100) fL MCH (27.0-34.0) pg MCHC (33.0-35.0) g/dL Plt Count (150-450) 10^3/uL Neut % (Auto) (42.2-75.2) % Lymph % (Auto) (20.5-50.1) % [place] % (Auto) (2-8) % Eos % (Auto) (1.0-3.0) % Baso % (Auto) (0.0-1.0) % D-Dimer, Quantitative (0-400) ng/mL Sodium 138 (136-145) mmol/L Potassium 3.5 (3.5-5.1) mmol/L Chloride 103 (98-107) mmol/L Carbon Dioxide 28 (21-32) mmol/L Anion Gap 10.5 (7-13) mEq/L BUN 11 (7-18) mg/dL Creatinine 0.83 (0.55-1.02) mg/dL Est Cr Clr Drug Dosing 73.91 mL/min Estimated GFR (MDRD) > 60 BUN/Creatinine Ratio 13.3 (No establ ref range) Glucose 91 (74-99) mg/dL Lactic Acid 0.9 (0.4-2.0) mmol/L Calcium 8.5 (8.5-10.1) mg/dL Total Bilirubin 0.2 (0.2-1.0) mg/dL AST 11 L (15-37) U/L ALT 16 (14-59) U/L Alkaline Phosphatase 66 (46-116) U/L Total Protein 6.9 (6.4-8.2) g/dL Albumin 3.2 L (3.4-5.0) g/dL Globulin 3.7 Albumin/Globulin Ratio 0.86 SARS-CoV-2 RNA (MISSY) (NEGATIVE) Meds: Medications Discontinued Medications Generic Name Dose Route Start Last Admin Trade Name Liliana PRN Reason Stop Dose Admin Azithromycin 500 mg 07/23/20 20:32 Zithromax PO 07/23/20 20:33 ONETIME ONE Departure - Departure Time of Disposition: 20:34 Disposition: Home, Self-Care 01 Condition: Fair Clinical Impression: Bronchitis - Discharge Information *PRESCRIPTION DRUG MONITORING PROGRAM REVIEWED*: Not Applicable *COPY OF PRESCRIPTION DRUG MONITORING REPORT IN PATIENT JOYCE: Not Applicable Instructions: Upper Respiratory Infection, Adult, [id number] Forms: ED Department Discharge Care Plan Goals: The patient was advised of the examination, lab and x-ray results during the visit. The patient was given an oral dose of Azithromycin (500 mg) while in the ED. The patient was discharged with a script for Azithromycin (250 mg) #4 to take 1 by mouth daily (starting 07/24/20) and Diflucan (150 mg) to take 1 by mouth as needed. If the patient has any additional symptoms or concerns, the patient should either follow-up with her primary care facility or return to the emergency department. Sepsis Event Note (ED) - Evaluation Sepsis Screening Result: No Definite Risk - Focused Exam Vital Signs: Vital Signs Temp Pulse Resp Pulse Ox 07/23/20 18:20 36.9 C 117 H 18 100
--- NOTE | 2020-07-23 19:54 | CR ---
PROCEDURE INFORMATION: Exam: XR Chest, 2 Views Exam date and time: 07/23/2020 7:30 PM Age: 45 years old Clinical indication: Other: Short of breath TECHNIQUE: Imaging protocol: XR of the chest Views: 2 views. COMPARISON: No relevant prior studies available. FINDINGS: Lungs: The lungs are symmetric, well expanded and clear. Pleural space: There are no pleural effusions. There is no pneumothorax. Heart/Mediastinum: The heart size is normal as are the mediastinal and hilar contours. The pulmonary vessels are normal. Bones/joints: No acute osseous pathology is identified. IMPRESSION: No acute cardiopulmonary disease process identified.
[2020-07-23 20:15] LABS: ANION GAP 10.5 mEq/L (7-13); CHLORIDE,CL 103 mmol/L (98-107); SODIUM,NA 138 mmol/L (136-145)
[2020-07-23] MEDS ORDERED: Azithromycin 250 MG Tab PO ONE (20:32)
== END 2020-07-23 20:41 | disposition home or self-care (01) ==
LOC: DL.ED 18:05
DX: J40 Bronchitis, not specified as acute or chronic (principal); Z20.828 Contact with and (suspected) exposure to other viral communicable diseases; Z88.5 Allergy status to narcotic agent; Z88.2 Allergy status to sulfonamides; Z90.710 Acquired absence of both cervix and uterus; Z98.51 Tubal ligation status
CPT/HCPCS: 36415; 71046; 80053; 83605; 85025; 85379; 87804; 99283; 99285-25; A9270-GY; U0002

== ENCOUNTER 2021-06-04 11:13 | Emergency (ER) | payer OTHER ==
[2021-06-04] MEDS ORDERED: Dexamethasone 4 MG/ML SDV IVPUSH ONE (11:53)
--- NOTE | 2021-06-04 12:03 | EDM.PDOC ---
ED HPI GENERAL MEDICAL PROBLEM - General Stated Complaint: [id number] ASTHMA OUT OF CONTROL Time Seen by Provider: 06/04/21 11:45 Source of Information: Reports: Patient History Limitations: Reports: No Limitations - History of Present Illness INITIAL COMMENTS - FREE TEXT/NARRATIVE: This 45 yo female patient reports to the ED due to increased shortness of breath. The patient reports her shortness of breath started this morning. The patient does have a history of asthma, but ran out of her nebulizer solution about 3 months ago. The patient did use her rescue inhaler today with little to no changes to her condition. The patient reports she has not attempted to be seen in the clinic for her current symptoms. The patient reports she has not gotten vaccinated for COVID and will not get the vaccine. The patient also reports dysuria and a "burnt match" smell to her urine. Onset: Today, Sudden Duration: Constant Location: Reports: Chest Quality: Reports: Other Severity: Moderate Improves with: Reports: None Worsens with: Reports: None Context: Reports: Other Associated Symptoms: Reports: Shortness of Breath - Related Data Allergies Allergy/AdvReac Type Severity Reaction Status Date / Time hydrocodone bitartrate Allergy Intermediate Hives Verified 06/04/21 12:22 [From [place]] Sulfa (Sulfonamide Allergy Mild Nausea and Verified 06/04/21 12:22 Antibiotics) Vomiting Home Meds: Home Meds Albuterol [Ventolin HFA] 2 puff INH Q4H PRN 07/06/15 [History] valACYclovir HCl [valACYclovir] 1,000 mg PO BEDTIME 07/06/15 [History] Albuterol/Ipratropium [DuoNeb 3.0-0.5 MG/3 ML] 3 ml NEB Q6HRRT PRN 09/19/18 [History] Montelukast Sodium [Singulair] 10 mg PO BEDTIME 09/19/18 [History] Fluticasone/Salmeterol [Advair 100-50] 1 puff INH BID 06/04/21 [History] Past Medical History HEENT History: Reports: Impaired Vision Cardiovascular History: Reports: None Respiratory History: Reports: Asthma Other Respiratory History: pneumonia, infleunza in past Gastrointestinal History: Reports: GERD Genitourinary History: Reports: None Other Genitourinary History: kidney stone 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 INTERNAL History: Reports: Endometriosis, , Other (See Below) Other MANAGER INTERNAL History: genital herpes Musculoskeletal History: Reports: Back Pain, Chronic, Other (See Below) Other Musculoskeletal History: lumbar disc disease Neurological History: Reports: None Psychiatric History: Reports: Anxiety, Depression Other Psychiatric History: patient denies, no medication for these Endocrine/Metabolic History: Reports: None Hematologic History: Reports: None Immunologic History: Reports: None Oncologic (Cancer) History: Reports: None Dermatologic History: Reports: Other (See Below) Other Dermatologic History: herpes virus - Infectious Disease History Infectious Disease History: Reports: Chicken Pox - Past Surgical History Head Surgeries/Procedures: Reports: None Female Surgical History: Reports: Cystectomy, Hysterectomy, Oophorectomy, Tubal Ligation Social & Family History - Family History Family Medical History: No Pertinent Family History Cardiac: Reports: Hypertension Other Cardiac Family History: Dad and mom Neurological: Reports: Alzheimers Disease, Other (See Below) Other Neurological Family History: in family hx - Caffeine Use Caffeine Use: Reports: Coffee - Living Situation & Occupation Living situation: Reports: with Family ED ROS GENERAL - Review of Systems Review Of Systems: Comprehensive ROS is negative, except as noted in HPI. ED EXAM, GENERAL - Physical Exam Exam: See Below Exam Limited By: No Limitations General Appearance: Alert, WD/WN, Moderate Distress Eye Exam: Bilateral Eye: EOMI, Normal Inspection, PERRL Ears: Normal External Exam, Normal Canal, Hearing Grossly Normal, Normal TMs Throat/Mouth: Normal Inspection, Normal Lips, Normal Teeth, Normal Gums, Normal Oropharynx, Normal Voice, No Airway Compromise Head: Atraumatic, Normocephalic Neck: Normal Inspection, Supple, Non-Tender, Full Range of Motion Respiratory/Chest: Decreased Breath Sounds, Wheezing Cardiovascular: Normal Peripheral Pulses, Regular Rate, Rhythm, No Edema, No Gallop, No JVD, No Murmur, No Rub GI/Abdominal: Normal Bowel Sounds, Soft, Non-Tender, No Organomegaly, No Distention, No Abnormal Bruit, No Mass (Female) Exam: Deferred Rectal (Female) Exam: Deferred Back Exam: Normal Inspection, Full Range of Motion, NT Extremities: Normal Inspection, Normal Range of Motion, Non-Tender, Normal Capillary Refill, No Pedal Edema Neurological: Alert, Oriented, CN II-XII Intact, Normal Cognition, Normal Gait, Normal Reflexes, No Motor/Sensory Deficits Psychiatric: Normal Affect, Normal Mood Skin Exam: Warm, Dry, Intact, Normal Color, No Rash Lymphatic: No Adenopathy Course - Vital Signs Last Recorded V/S: Last Vital Signs Temp 97.9 F 06/04/21 11:50 Pulse 87 06/04/21 13:12 Resp 16 06/04/21 11:50 BP 117/89 06/04/21 11:50 Pulse Ox 98 06/04/21 13:12 - Orders/Labs/Meds Orders: Active Orders 24 hr Category Date Time Status RT Aerosol Therapy [RC] ASDIRECTED Care 06/04/21 13:12 Ordered CULTURE BLOOD [BC] Stat Lab 06/04/21 11:43 Ordered CULTURE URINE [RM] Urgent Lab 06/04/21 12:04 Received Labs: Laboratory Tests 06/04/21 06/04/21 06/04/21 Range/Units 11:43 12:00 12:00 WBC 7.5 (5.0-10.0) 10^3/uL RBC 4.11 L (4.2-5.4) 10^6/uL Hgb 13.3 (12.0-16.0) g/dL Hct 40.3 (37.0-47.0) % MCV 98.1 (80-100) fL MCH 32.4 (27.0-34.0) pg MCHC 33.0 (33.0-35.0) g/dL Plt Count 297 (150-450) 10^3/uL Neut % (Auto) 66.5 (42.2-75.2) % Lymph % (Auto) 24.5 (20.5-50.1) % [place] % (Auto) 7.0 (2-8) % Eos % (Auto) 1.3 (1.0-3.0) % Baso % (Auto) 0.7 (0.0-1.0) % Sodium 141 (136-145) mmol/L Potassium 3.9 (3.5-5.1) mmol/L Chloride 105 (98-107) mmol/L Carbon Dioxide 26 (21-32) mmol/L Anion Gap 13.9 H (7-13) mEq/L BUN 8 (7-18) mg/dL Creatinine 0.75 (0.55-1.02) mg/dL Est Cr Clr Drug Dosing 68.04 mL/min Estimated GFR (MDRD) > 60 BUN/Creatinine Ratio 10.7 (No establ ref range) Glucose 99 (70-99) mg/dL Lactic Acid (0.4-2.0) mmol/L Calcium 8.7 (8.5-10.1) mg/dL Total Bilirubin 0.3 (0.2-1.0) mg/dL AST 9 L (15-37) U/L ALT 14 (14-59) U/L Alkaline Phosphatase 93 (46-116) U/L Total Protein 7.7 (6.4-8.2) g/dL Albumin 3.4 (3.4-5.0) g/dL Globulin 4.3 Albumin/Globulin Ratio 0.8 Urine Color (YELLOW) Urine Appearance (CLEAR) Urine pH (5.0-9.0) Ur Specific [place] (1.005-1.030) Urine Protein (NEGATIVE) Urine Glucose (UA) (NEGATIVE) Urine Ketones (NEGATIVE) Urine Occult Blood (NEGATIVE) Urine Nitrite (NEGATIVE) Urine Bilirubin (NEGATIVE) Urine Urobilinogen (0.2-1.0) mg/dL Ur Leukocyte Esterase (NEGATIVE) Urine RBC (0-5) /HPF Urine WBC (0-5/HPF) /HPF Ur Epithelial Cells (NOT SEEN) /HPF Urine Bacteria (0-FEW/HPF) /HPF Influenza Type A RNA Negative (NEGATIVE) Influenza Type B RNA Negative (NEGATIVE) SARS-CoV-2 RNA (MISSY) Negative (NEGATIVE) 06/04/21 06/04/21 Range/Units 12:00 12:04 WBC (5.0-10.0) 10^3/uL RBC (4.2-5.4) 10^6/uL Hgb (12.0-16.0) g/dL Hct (37.0-47.0) % MCV (80-100) fL MCH (27.0-34.0) pg MCHC (33.0-35.0) g/dL Plt Count (150-450) 10^3/uL Neut % (Auto) (42.2-75.2) % Lymph % (Auto) (20.5-50.1) % [place] % (Auto) (2-8) % Eos % (Auto) (1.0-3.0) % Baso % (Auto) (0.0-1.0) % Sodium (136-145) mmol/L Potassium (3.5-5.1) mmol/L Chloride (98-107) mmol/L Carbon Dioxide (21-32) mmol/L Anion Gap (7-13) mEq/L BUN (7-18) mg/dL Creatinine (0.55-1.02) mg/dL Est Cr Clr Drug Dosing mL/min Estimated GFR (MDRD) BUN/Creatinine Ratio (No establ ref range) Glucose (70-99) mg/dL Lactic Acid 0.9 (0.4-2.0) mmol/L Calcium (8.5-10.1) mg/dL Total Bilirubin (0.2-1.0) mg/dL AST (15-37) U/L ALT (14-59) U/L Alkaline Phosphatase (46-116) U/L Total Protein (6.4-8.2) g/dL Albumin (3.4-5.0) g/dL Globulin Albumin/Globulin Ratio Urine Color Yellow (YELLOW) Urine Appearance Slightly cloudy (CLEAR) Urine pH 7.0 (5.0-9.0) Ur Specific [place] 1.025 (1.005-1.030) Urine Protein Negative (NEGATIVE) Urine Glucose (UA) Negative (NEGATIVE) Urine Ketones Negative (NEGATIVE) Urine Occult Blood Trace-lysed H (NEGATIVE) Urine Nitrite Negative (NEGATIVE) Urine Bilirubin Negative (NEGATIVE) Urine Urobilinogen 0.2 (0.2-1.0) mg/dL Ur Leukocyte Esterase Small H (NEGATIVE) Urine RBC 0-5 (0-5) /HPF Urine WBC 20-30 H (0-5/HPF) /HPF Ur Epithelial Cells Few (NOT SEEN) /HPF Urine Bacteria Many H (0-FEW/HPF) /HPF Influenza Type A RNA (NEGATIVE) Influenza Type B RNA (NEGATIVE) SARS-CoV-2 RNA (MISSY) (NEGATIVE) Meds: Medications Discontinued Medications Generic Name Dose Route Start Last Admin Trade Name Freq PRN Reason Stop Dose Admin Albuterol/Ipratropium 3 ml 06/04/21 13:12 06/04/21 13:18 Albuterol/Ipratropium 3.0-0.5 Mg/3 Ml Neb Soln NEB 06/04/21 13:13 3 ml ONETIME ONE Administration Dexamethasone 4 mg 06/04/21 11:53 06/04/21 12:06 Dexamethasone 4 Mg/Ml Sdv IVPUSH 06/04/21 11:54 4 mg ONETIME ONE Administration Departure - Departure Time of Disposition: 13:32 Disposition: Home, Self-Care 01 Condition: Fair Clinical Impression: Exacerbation of asthma Qualifiers: Asthma severity: moderate Asthma persistence: persistent Qualified Code(s): J45.41 - Moderate persistent asthma with (acute) exacerbation - Discharge Information *PRESCRIPTION DRUG MONITORING PROGRAM REVIEWED*: Not Applicable *COPY OF PRESCRIPTION DRUG MONITORING REPORT IN PATIENT JOYCE: Not Applicable Instructions: Asthma, Adult, [id number] Forms: ED Department Discharge Care Plan Goals: The patient was advised of the examination and lab results during the visit. The patient was given an IV dose of Dexamethasone and a nebulized Duoneb treatment during the visit. The patient was discharged with a script for Duoneb Solution # 1 box to do 1 treatment every 6 hours as needed and Prednisone (20 mg) #10 to take 2 by mouth daily for 5 days. If the patient has any additional symptoms or concerns, the patient should either return to the emergency department or visit her primary care facility. Sepsis Event Note (ED) - Focused Exam Vital Signs: Vital Signs Temp Pulse Resp BP Pulse Ox Pulse Ox 06/04/21 13:12 87 98 06/04/21 11:50 97.9 F 102 H 16 117/89 97 - My Orders Last 24 Hours: My Active Orders 06/04/21 11:43 CULTURE BLOOD [BC] Stat 06/04/21 12:04 CULTURE URINE [RM] Urgent 06/04/21 13:12 RT Aerosol Therapy [RC] ASDIRECTED - Assessment/Plan Last 24 Hours: My Active Orders 06/04/21 11:43 CULTURE BLOOD [BC] Stat 06/04/21 12:04 CULTURE URINE [RM] Urgent 06/04/21 13:12 RT Aerosol Therapy [RC] ASDIRECTED
[2021-06-04 12:23] VITALS: BP 117/89
[2021-06-04 12:27] LABS: ANION GAP 13.9 mEq/L (7-13); CHLORIDE,CL 105 mmol/L (98-107); SODIUM,NA 141 mmol/L (136-145)
[2021-06-04 12:46] LABS: CORONAVIRUS COVID-19 NAA NEGATIVE (NEGATIVE)
[2021-06-04] MEDS ORDERED: Albuterol/Ipratropium 3.0-0.5 MG/3 ML Neb Soln NEB ONE (13:12)
[2021-06-04 13:19] VITALS: PULSE 87
== END 2021-06-04 13:55 | disposition home or self-care (01) ==
LOC: DL.ED 11:13
DX: J45.41 Moderate persistent asthma with (acute) exacerbation (principal); Z88.5 Allergy status to narcotic agent; Z88.2 Allergy status to sulfonamides; Z20.822 Contact with and (suspected) exposure to COVID-19; Z79.899 Other long term (current) drug therapy
CPT/HCPCS: 0240U; 36415; 80053; 81001; 83605; 85025; 87040; 87086; 94640; 96374; 99285; J1100; 87088; 87186; J7620-GY

== ENCOUNTER 2021-06-07 09:42 | Emergency (ER) | payer OTHER ==
[2021-06-07 10:34] VITALS: BP 125/94; PULSE 103
[2021-06-07] MEDS ORDERED: Albuterol/Ipratropium 3.0-0.5 MG/3 ML Neb Soln NEB ONE (10:41)
--- NOTE | 2021-06-07 10:44 | EDM.PDOC ---
ED HPI GENERAL MEDICAL PROBLEM - General Chief Complaint: Respiratory Problem Stated Complaint: ASTHMA / TROUBLE BREATHING Time Seen by Provider: 06/07/21 10:42 Source of Information: Reports: Patient, Old Records, RN, RN Notes Reviewed History Limitations: Reports: No Limitations - History of Present Illness INITIAL COMMENTS - FREE TEXT/NARRATIVE: Hayley is a 45 y/o female with a history of asthma, eight weeks cigarette free, who presents to the ED via personal vehicle with complaints of progressive shortness of breath and cough. The patient was examined at this facility three days ago for similar symptoms and was subsequently diagnosed with asthma exacerbation for which she received albuterol nebulizers and a pulmonary prednisone burst. Additionally, she does attest to chest pain with deep inspiration and cough. The patient denies fever, shaking chills, vision changes, dizziness, hemoptysis, or palpitations. She has not taken any PRN medications for her symptoms, her last nebulizer treatment was last night. The patient reports she is 8-weeks cigarette free; she denies alcohol or recreational drug use. She is not vaccinated for COVID. chest Pain Score (Numeric/FACES): 6 - Related Data Allergies Allergy/AdvReac Type Severity Reaction Status Date / Time hydrocodone bitartrate Allergy Intermediate Hives Verified 06/07/21 10:33 [From [facility]] Sulfa (Sulfonamide Allergy Mild Nausea and Verified 06/07/21 10:33 Antibiotics) Vomiting Home Meds: Home Meds Albuterol [Ventolin HFA] 2 puff INH Q4H PRN 07/06/15 [History] valACYclovir HCl [valACYclovir] 1,000 mg PO BEDTIME 07/06/15 [History] Albuterol/Ipratropium [DuoNeb 3.0-0.5 MG/3 ML] 3 ml NEB Q6HRRT PRN 09/19/18 [History] Montelukast Sodium [Singulair] 10 mg PO BEDTIME 09/19/18 [History] Fluticasone/Salmeterol [Advair 100-50] 1 puff INH BID 06/04/21 [History] Past Medical History HEENT History: Reports: Impaired Vision Cardiovascular History: Reports: None Respiratory History: Reports: Asthma Other Respiratory History: pneumonia, infleunza in past Gastrointestinal History: Reports: GERD Genitourinary History: Reports: None Other Genitourinary History: kidney stone GLOVE MAKER History: Reports: Endometriosis, , Other (See Below) Other GLOVE MAKER History: genital herpes Musculoskeletal History: Reports: Back Pain, Chronic, Other (See Below) Other Musculoskeletal History: lumbar disc disease Neurological History: Reports: None Psychiatric History: Reports: Anxiety, Depression Other Psychiatric History: patient denies, no medication for these Endocrine/Metabolic History: Reports: None Hematologic History: Reports: None Immunologic History: Reports: None Oncologic (Cancer) History: Reports: None Dermatologic History: Reports: Other (See Below) Other Dermatologic History: herpes virus - Infectious Disease History Infectious Disease History: Reports: Chicken Pox - Past Surgical History Head Surgeries/Procedures: Reports: None HEENT Surgical History: Reports: Adenoidectomy, Tonsillectomy Cardiovascular Surgical History: Reports: None Respiratory Surgical History: Reports: None GI Surgical History: Reports: None Other GI Surgeries/Procedures: in grade school Female Surgical History: Reports: Cystectomy, Hysterectomy, Oophorectomy, Tubal Ligation Other Female Surgeries/Procedures: has bladder sling, hysterectomy in 12/30, injections next to bladder 08/01 Musculoskeletal Surgical History: Reports: Carpal Tunnel Dermatological Surgical History: Reports: None Social & Family History - Family History Family Medical History: No Pertinent Family History Cardiac: Reports: Hypertension Other Cardiac Family History: Dad and mom Neurological: Reports: Alzheimers Disease, Other (See Below) Other Neurological Family History: in family hx - Caffeine Use Caffeine Use: Reports: Coffee - Living Situation & Occupation Living situation: Reports: with Family ED ROS GENERAL - Review of Systems Review Of Systems: Comprehensive ROS is negative, except as noted in HPI. ED EXAM, GENERAL - Physical Exam Exam: See Below Exam Limited By: No Limitations General Appearance: Alert, No Apparent Distress Eye Exam: Bilateral Eye: EOMI, Normal Inspection, PERRL (3mm) Ears: Normal External Exam, Normal Canal, Hearing Grossly Normal, Normal TMs Ear Exam: Bilateral Ear: Auricle Normal, Canal Normal, TM normal Nose: Normal Inspection, Normal Mucosa, No Blood Throat/Mouth: Normal Inspection, Normal Oropharynx, Normal Voice, No Airway Compromise Head: Atraumatic, Normocephalic Neck: Normal Inspection, Full Range of Motion. No: Lymphadenopathy (L), Lymphadenopathy (R) Respiratory/Chest: No Respiratory Distress, No Accessory Muscle Use, Rhonchi (Diffuse), Wheezing (Inspiratory and expiratory wheezes ). No: Rales, Stridor, Accessory Muscle Use Cardiovascular: Normal Peripheral Pulses, Regular Rate, Rhythm, No Edema, No Gallop, No JVD, No Murmur, No Rub, Tachycardia Peripheral Pulses: 2+: Radial (L), Radial (R) GI/Abdominal: Normal Bowel Sounds, Soft, Non-Tender, No Distention, No Abnormal Bruit, No Mass, Pelvis Stable. No: Guarding, Rigid, Rebound (Female) Exam: Deferred Rectal (Female) Exam: Deferred Back Exam: Normal Inspection, Full Range of Motion Extremities: Normal Inspection, Normal Range of Motion, Non-Tender, No Pedal Edema, Normal Capillary Refill Neurological: Alert, Oriented, CN II-XII Intact, Normal Cognition, Normal Gait, No Motor/Sensory Deficits Psychiatric: Normal Affect, Normal Mood Skin Exam: Warm, Dry, Intact, Normal Color, No Rash. No: Cyanosis, Jaundice, Mottled, Pallor Course - Vital Signs Last Recorded V/S: Last Vital Signs Temp 98.6 F 06/07/21 10:29 Pulse 103 H 06/07/21 10:29 Resp 20 06/07/21 10:29 BP 125/94 H 06/07/21 10:29 Pulse Ox 96 06/07/21 10:29 - Orders/Labs/Meds Labs: Laboratory Tests 06/07/21 06/07/21 06/07/21 Range/Units 10:40 10:40 10:40 WBC 8.8 (5.0-10.0) 10^3/uL RBC 4.24 (4.2-5.4) 10^6/uL Hgb 13.7 (12.0-16.0) g/dL Hct 42.4 (37.0-47.0) % MCV 100.0 (80-100) fL MCH 32.3 (27.0-34.0) pg MCHC 32.3 L (33.0-35.0) g/dL Plt Count 287 (150-450) 10^3/uL Neut % (Auto) 59.7 (42.2-75.2) % Lymph % (Auto) 29.2 (20.5-50.1) % Wells % (Auto) 10.3 H (2-8) % Eos % (Auto) 0.3 L (1.0-3.0) % Baso % (Auto) 0.5 (0.0-1.0) % Sodium 141 (136-145) mmol/L Potassium 3.6 (3.5-5.1) mmol/L Chloride 103 (98-107) mmol/L Carbon Dioxide 27 (21-32) mmol/L Anion Gap 14.6 H (7-13) mEq/L BUN 18 (7-18) mg/dL Creatinine 0.91 (0.55-1.02) mg/dL Est Cr Clr Drug Dosing 56.08 mL/min Estimated GFR (MDRD) > 60 BUN/Creatinine Ratio 19.8 (No establ ref range) Glucose 80 (70-99) mg/dL Lactic Acid 1.2 (0.4-2.0) mmol/L Calcium 8.9 (8.5-10.1) mg/dL Total Bilirubin 0.2 (0.2-1.0) mg/dL AST 10 L (15-37) U/L ALT 14 (14-59) U/L Alkaline Phosphatase 91 (46-116) U/L C-Reactive Protein < 0.2 (0.0-0.9) mg/dL B-Natriuretic Peptide (0-100) pg/ml Total Protein 8.0 (6.4-8.2) g/dL Albumin 3.5 (3.4-5.0) g/dL Globulin 4.5 Albumin/Globulin Ratio 0.8 SARS-CoV-2 RNA (MISSY) (NEGATIVE) 06/07/21 06/07/21 Range/Units 10:40 11:01 WBC (5.0-10.0) 10^3/uL RBC (4.2-5.4) 10^6/uL Hgb (12.0-16.0) g/dL Hct (37.0-47.0) % MCV (80-100) fL MCH (27.0-34.0) pg MCHC (33.0-35.0) g/dL Plt Count (150-450) 10^3/uL Neut % (Auto) (42.2-75.2) % Lymph % (Auto) (20.5-50.1) % Wells % (Auto) (2-8) % Eos % (Auto) (1.0-3.0) % Baso % (Auto) (0.0-1.0) % Sodium (136-145) mmol/L Potassium (3.5-5.1) mmol/L Chloride (98-107) mmol/L Carbon Dioxide (21-32) mmol/L Anion Gap (7-13) mEq/L BUN (7-18) mg/dL Creatinine (0.55-1.02) mg/dL Est Cr Clr Drug Dosing mL/min Estimated GFR (MDRD) BUN/Creatinine Ratio (No establ ref range) Glucose (70-99) mg/dL Lactic Acid (0.4-2.0) mmol/L Calcium (8.5-10.1) mg/dL Total Bilirubin (0.2-1.0) mg/dL AST (15-37) U/L ALT (14-59) U/L Alkaline Phosphatase (46-116) U/L C-Reactive Protein (0.0-0.9) mg/dL B-Natriuretic Peptide 30 (0-100) pg/ml Total Protein (6.4-8.2) g/dL Albumin (3.4-5.0) g/dL Globulin Albumin/Globulin Ratio SARS-CoV-2 RNA (MISSY) Negative (NEGATIVE) Meds: Medications Discontinued Medications Generic Name Dose Route Start Last Admin Trade Name Liliana PRN Reason Stop Dose Admin Albuterol/Ipratropium 3 ml 06/07/21 10:41 06/07/21 10:48 Albuterol/Ipratropium 3.0-0.5 Mg/3 Ml Neb Soln NEB 06/07/21 10:42 3 ml ONETIME ONE Administration Benzonatate 100 mg 06/07/21 11:40 06/07/21 11:59 Benzonatate 100 Mg Cap PO 06/07/21 11:41 100 mg ONETIME ONE Administration Ceftriaxone Sodium 1 gm/ 50 mls @ 100 mls/hr 06/07/21 11:40 06/07/21 12:26 Sodium Chloride IV 06/07/21 12:09 Infused ONETIME ONE Infusion - Radiology Interpretation Free Text/Narrative:: [facility] Final Radiology Report Call: [phone] assistance Online chat: [email or web address] Name: HAYLEY ANSARI Age: 45Years F Date: 06/07/2021 SSN: -- : [id number] Study: CR CHEST 2V Requesting Physician: Pushpa Rosales Images: 2 Addl Studies: Provided Clinical History: persistent cough, rhonchi diffuse Contrast: Contrast Medium: Contrast Amount: Contrast Method: CONFIDENTIALITY STATEMENT This report is intended only for use by the referring physician, and only in accordance with law. If you received this in error, call [phone]. Page 1 of 1 PROCEDURE INFORMATION: Exam: XR Chest Exam date and time: 06/07/2021 10:57 AM Age: 45 years old Clinical indication: Cough; Additional info: Persistent cough, rhonchi diffuse TECHNIQUE: Imaging protocol: XR of the chest. Views: 2 views. COMPARISON: CR Chest 2V 07/23/2020 7:30 PM FINDINGS: Lungs: The lungs are normally expanded and clear. Pleural spaces: Normal. Heart/Mediastinum: Normal heart and cardio-mediastinal silhouette. Vasculature: Normal pulmonary vessels and width of the vascular pedicle. Bones/joints: Intact and normally aligned. No suspicious lesion. IMPRESSION: No acute disease or suspicious finding. Thank you for allowing us to participate in the care of your patient. Dictated and Authenticated by: Bonifacio Bustamante MD 06/07/2021 11:29 AM Central Time ([place] & [place]) - Re-Assessments/Exams Free Text/Narrative Re-Assessment/Exam: 06/07/21 COVID test sent. CXR obtained while labs pending. Findings of examination, lab work, and imaging reviewed with patient. Will treat UTI from previous visit with Rocephin 1gm IVPB and Keflex 500mg. Supportive cares for for UTI and cough discussed. Patient instructed to follow up with primary care provider regarding todays visit. Red flag signs and symptoms which would warrant immediate reevaluation reviewed. Patient verbalized understanding and agreement with the plan of care. Departure - Departure Time of Disposition: 12:13 Disposition: Home, Self-Care 01 Clinical Impression: Asthma exacerbation Qualifiers: Asthma severity: moderate Asthma persistence: persistent Qualified Code(s): J45.41 - Moderate persistent asthma with (acute) exacerbation Urinary tract infection Qualifiers: Urinary tract infection type: acute cystitis Hematuria presence: with hematuria Qualified Code(s): N30.01 - Acute cystitis with hematuria - Discharge Information *PRESCRIPTION DRUG MONITORING PROGRAM REVIEWED*: Not Applicable *COPY OF PRESCRIPTION DRUG MONITORING REPORT IN PATIENT JOYCE: Not Applicable Instructions: Asthma, Adult, Urinary Tract Infection, Adult Forms: ED Department Discharge Additional Instructions: Rx: Keflex Rx; Tessalon Perles 1.) Take all of your antibiotic until gone, even as symptoms improve improve. 2.) Continue on your previously prescribed steroids and albuterol. 3.) Follow up with your primary care provider in 2-3 days regarding today's visit. Sepsis Event Note (ED) - Evaluation Sepsis Screening Result: No Definite Risk - Focused Exam Vital Signs: Vital Signs Temp Pulse Resp BP Pulse Ox 06/07/21 10:29 98.6 F 103 H 20 125/94 H 96
[2021-06-07 11:07] LABS: ANION GAP 14.6 mEq/L (7-13); CHLORIDE,CL 103 mmol/L (98-107); SODIUM,NA 141 mmol/L (136-145)
--- NOTE | 2021-06-07 11:29 | CR ---
PROCEDURE INFORMATION: Exam: XR Chest Exam date and time: 06/07/2021 10:57 AM Age: 45 years old Clinical indication: Cough; Additional info: Persistent cough, rhonchi diffuse TECHNIQUE: Imaging protocol: XR of the chest. Views: 2 views. COMPARISON: CR Chest 2V 07/23/2020 7:30 PM FINDINGS: Lungs: The lungs are normally expanded and clear. Pleural spaces: Normal. Heart/Mediastinum: Normal heart and cardio-mediastinal silhouette. Vasculature: Normal pulmonary vessels and width of the vascular pedicle. Bones/joints: Intact and normally aligned. No suspicious lesion. IMPRESSION: No acute disease or suspicious finding.
[2021-06-07] MEDS ORDERED: cefTRIAXone 1 GM in Sodium Chloride 0.9% 50 ML IV ONE (11:40)
[2021-06-07] MEDS ORDERED: Benzonatate 100 MG Cap PO ONE (11:40)
== END 2021-06-07 12:36 | disposition home or self-care (01) ==
LOC: DL.ED 09:42
DX: J45.41 Moderate persistent asthma with (acute) exacerbation (principal); N30.01 Acute cystitis with hematuria; Z88.5 Allergy status to narcotic agent; Z88.2 Allergy status to sulfonamides; Z79.899 Other long term (current) drug therapy; Z20.822 Contact with and (suspected) exposure to COVID-19
CPT/HCPCS: 36415; 71046; 80053; 83605; 83880; 85025; 86140; 87635; 94640; 96365; 99285; A9270; J0696; J7620-GY; U0002

== ENCOUNTER 2022-09-24 11:49 | Emergency (ER) | payer MEDICAID, OTHER ==
[2022-09-24] MEDS ORDERED: Ketorolac 30 MG/ML SDV IM ONE (12:56)
[2022-09-24] MEDS ORDERED: Cyclobenzaprine 10 MG Tab PO ONE (12:57)
[2022-09-24] MEDS ORDERED: Lidocaine 5% Oint 35.44 GM Tube TOP ONE (12:57)
[2022-09-24 13:59] VITALS: BP 128/76; PULSE 78
== END 2022-09-24 13:56 | disposition home or self-care (01) ==
LOC: DL.ED 11:49
DX: S30.0XXA Contusion of lower back and pelvis, initial encounter (principal); J45.909 Unspecified asthma, uncomplicated; Z88.5 Allergy status to narcotic agent; Z88.2 Allergy status to sulfonamides; Z72.0 Tobacco use; Z79.899 Other long term (current) drug therapy; Z90.710 Acquired absence of both cervix and uterus; W00.0XXA Fall on same level due to ice and snow, initial encounter
CPT/HCPCS: 72220; 96372; 99283; 99284; A9270-GY; J1885

== ENCOUNTER 2023-09-03 17:48 | Emergency (ER) | payer BC, OTHER ==
[2023-09-03 17:59] VITALS: BP 159/98; PULSE 114
[2023-09-03] MEDS: predniSONE 20 MG Tab PO ONE (18:09)
[2023-09-03] MEDS: Albuterol/Ipratropium 3.0-0.5 MG/3 ML Neb Soln NEB ONE (18:09)
== END 2023-09-03 18:41 | disposition home or self-care (01) ==
LOC: DL.ED 17:48
DX: R06.02 Shortness of breath (principal); Z87.891 Personal history of nicotine dependence; J45.909 Unspecified asthma, uncomplicated; Z88.2 Allergy status to sulfonamides
CPT/HCPCS: 99283; 99284; J7512; J7620-GY

== ENCOUNTER 2023-09-08 08:51 | Emergency (ER) | payer BC, OTHER ==
[2023-09-08 09:47] LABS: BASOPHILS PERCENT AUTO 0.3 % (0.0-1.0); EOSINOPHILS PERCENT AUTO 2.6 % (1.0-3.0); HEMATOCRIT 27.9 % (37.0-47.0); HEMOGLOBIN 9.3 g/dL (12.0-16.0); LYMPHOCYTES PERCENT AUTO 45.3 % (20.5-50.1); MEAN CORPUSCULAR HEMOGLOBIN 32.6 pg (27.0-34.0); MEAN CORPUSCULAR HGB CONC 33.3 g/dL (33.0-35.0); MEAN CORPUSCULAR VOLUME 97.9 fL (80-100); MONOCYTES PERCENT AUTO 5.7 % (2-8); NEUTROPHILS PERCENT AUTO 46.1 % (42.2-75.2); PLATELET COUNT,PLT 214 10^3/uL (150-450); RED BLOOD CELL COUNT 2.85 10^6/uL (4.2-5.4); WHITE BLOOD CELL COUNT,WBC 10.6 10^3/uL (5.0-10.0)
[2023-09-08 09:51] LABS: APPEARANCE,URINE CLEAR (CLEAR); BILIRUBIN,URINE NEGATIVE (NEGATIVE); COLOR,URINE YELLOW (YELLOW); GLUCOSE,URINE NEGATIVE (NEGATIVE); KETONES,URINE NEGATIVE (NEGATIVE); LEUKOCYTE ESTERASE,URINE NEGATIVE (NEGATIVE); NITRITE,URINE NEGATIVE (NEGATIVE); OCCULT BLOOD,URINE TRACE-INTACT (NEGATIVE); PH,URINE 6.5 (5.0-9.0); PROTEIN,URINE NEGATIVE (NEGATIVE); UROBILINOGEN,URINE 0.2 mg/dL (0.2-1.0)
[2023-09-08 10:09] LABS: ALBUMIN 2.9 g/dL (3.4-5.0); ANION GAP 11.8 mEq/L (7-13); BILIRUBIN TOTAL 0.3 mg/dL (0.2-1.0); BUN/CREATININE RATIO 22.8 (No establ ref range); CALCIUM 8.5 mg/dL (8.5-10.1); CREATININE 0.79 mg/dL (0.55-1.02); EST CRCL DRUG DOSING (CG) 62.55 mL/min; POTASSIUM,K 3.8 mmol/L (3.5-5.1); PROTEIN TOTAL,TP 6.2 g/dL (6.4-8.2)
[2023-09-08 10:10] LABS: A/G RATIO 0.88
[2023-09-08 10:15] LABS: EPITHELIAL CELLS,URINE MODERATE /HPF (NOT SEEN); RBC,URINE 0-5 /HPF (0-5)
[2023-09-08 10:16] LABS: WBC,URINE 0-5 /HPF (0-5/HPF)
[2023-09-08 10:22] LABS: BACTERIA,URINE RARE /HPF (0-FEW/HPF)
[2023-09-08 11:09] LABS: CORONAVIRUS COVID-19 NAA NEGATIVE (NEGATIVE); INFLUENZA A NAA NEGATIVE (NEGATIVE); INFLUENZA B NAA NEGATIVE (NEGATIVE)
[2023-09-08] MEDS ORDERED: Ondansetron 4 MG/2 ML SDV IVPUSH ONE (11:45)
[2023-09-08] MEDS ORDERED: Lactated Ringers 1,000 ML IV ONE (11:45)
[2023-09-08] MEDS ORDERED: Ketorolac 30 MG/ML SDV IVPUSH ONE (11:46)
[2023-09-08] MEDS ORDERED: Triamcinolone Acetonide 40 MG/ML 1 ML SDV INJECT ONE (11:52)
[2023-09-08] MEDS ORDERED: Lidocaine 1% 5 ML VIAL INJECT ONE (11:52)
[2023-09-08] MEDS ORDERED: Lidocaine 2% Viscous Solution 15 ML UD PO ONE (12:23)
[2023-09-08] MEDS ORDERED: Aluminum Hydroxide/Magnesium Hydroxide/Simethicone Susp 30 ML Cup PO ONE (12:23)
[2023-09-08] MEDS ORDERED: Iopamidol 755 Mg/ML 100 ML Bottle IVPUSH ONE (13:00)
[2023-09-08] MEDS ORDERED: Omeprazole 20 MG Cap.CR PO ONE (16:03)
[2023-09-08 16:26] VITALS: BP 112/82; PULSE 78
== END 2023-09-08 16:54 | disposition home or self-care (01) ==
LOC: DL.ED 08:51
DX: R42 Dizziness and giddiness (principal); K21.9 Gastro-esophageal reflux disease without esophagitis; F17.210 Nicotine dependence, cigarettes, uncomplicated; Z90.710 Acquired absence of both cervix and uterus; Z79.899 Other long term (current) drug therapy; Z88.2 Allergy status to sulfonamides; Z88.8 Allergy status to other drugs, medicaments and biological substances
CPT/HCPCS: 0240U; 36415; 70450; 70496; 70498; 70551; 80053; 80307; 81001; 81025; 82947; 84484; 85025; 85379; 93010; 96361; 96374; 96375; 99284; 99285-25; A9270-GY; J1885; J2405; J3301; J3490; J7120; Q9967

== ENCOUNTER 2025-03-11 14:05 | Emergency (ER) | payer BC, OTHER ==
[2025-03-11 15:13] VITALS: PULSE 98
[2025-03-11] MEDS: Dexamethasone 4 MG/ML SDV IM ONE (15:18)
[2025-03-11 15:29] VITALS: BP 124/85
== END 2025-03-11 15:18 | disposition home or self-care (01) ==
LOC: DL.ED 14:05
DX: M54.50 Low back pain, unspecified (principal); F17.210 Nicotine dependence, cigarettes, uncomplicated; Z88.2 Allergy status to sulfonamides; Z88.5 Allergy status to narcotic agent; Z79.51 Long term (current) use of inhaled steroids; Z79.899 Other long term (current) drug therapy; Z90.710 Acquired absence of both cervix and uterus
CPT/HCPCS: 96372; 99283; J1100